=== PATIENT | male | born 1995 | race Two or more races ===

== ENCOUNTER 2018-03-28 18:09 | Emergency (ER) | payer MEDICAID ==
[~2018-03-28] VITALS: Ht 182.9 cm; Wt 68.0 kg
--- NOTE | 2018-03-28 18:18 | NUR ---
PT IS IN ROOM #1B. DR BREWER EVALUATED THE PT.
[2018-03-28] MEDS ORDERED: KETOROLAC TROMETHAMINE 30 MG INJ IM ONE (18:30)
[2018-03-28] MEDS ORDERED: KETOROLAC TROMETHAMINE 30 MG INJ ONE (18:38)
--- NOTE | 2018-03-28 18:54 | NUR ---
PT WAS EVALUATED BY DR BREWER. PT WAS D/C TO HOME. D/C INSTRUCTIONS GIVEN TO THE PT.
[2018-03-28 18:56] VITALS: BP 128/71
== END 2018-03-28 18:57 | disposition home or self-care (01) ==
LOC: ER 18:10
DX: M25.511 Pain in right shoulder (principal)
CPT/HCPCS: 73030; A4663; J1885